=== PATIENT | female | born 1955 ===

== ENCOUNTER 2022-05-11 12:27 | Observation (INO) ==
[~2022-05-11 12:27] MED LIST: Artificial Tear OPHTH.OINT 3.5 GM ONE; Buffered Lidocaine 1% SYRIN 1 ml INTRADERM ONE; Dexamethasone IV 4 MG/ML VIAL 1 ml VIAL ONE; Lactated Ringers 1000 ml BAG 1,000 ML IV SCH; Lidocaine 2% PF 5 ML VIAL ONE; Midazolam 2 mg/2 ml VIAL 1 mg/ml 2 ml VIAL (2 mg) ONE; Ondansetron 4 mg VIAL 2 MG/ML 2 ml VIAL ONE; Propofol 10 MG/ML 20 ML BTL ONE; Rocuronium 50 mg VIAL 10 mg/ml 5 ml VIAL (50 mg) ONE; fentaNYL 250 mcg/5 ml 50 MCG/ML 5 ml VIAL (250 MCG) ONE
[2022-05-11] MEDS ORDERED: ceFAZolin 2 GM PREMIX 2 GM/50 ML BAG ONE (12:54)
[2022-05-11 13:21] LABS: Rapid COVID-19 Molecular Undetected (Undetected)
[2022-05-11] MEDS ORDERED: Lidocaine 1% w EPI 1:200,000 SDV 30 ML VIAL ONE (13:25)
[2022-05-11] MEDS ORDERED: Bupivacaine 0.25% SDV 30 ML ONE ×2 (13:25→13:59)
[2022-05-11 13:54] LABS: Calcium 9.4 mg/dL (8.6-10.3); Potassium 4.5 mmol/L (3.5-5.0); eGFR CKD-EPI 76.6 (>60)
[2022-05-11] MEDS ORDERED: Ondansetron 4 mg VIAL 2 MG/ML 2 ml VIAL IV PRN ×2 (14:45→16:42)
[2022-05-11] MEDS ORDERED: Naloxone 0.4 mg VIAL 0.4 mg/ml 1 ml VIAL IV PRN (14:45)
[2022-05-11] MEDS ORDERED: HYDROmorphone 1 MG/1 ML SYRINGE IV PRN (14:45)
[2022-05-11] MEDS ORDERED: Morphine 2 MG/ML SYRINGE IV PRN (16:51)
[2022-05-11] MEDS ORDERED: fentaNYL 100 mcg/2 ml 50 MCG/ML VIAL ONE (17:04)
[2022-05-11] MEDS: fentaNYL 100 mcg/2 ml 50 MCG/ML VIAL IV PRN ×4 (17:05→17:35)
[2022-05-11] MEDS: Lactated Ringers 1000 ml BAG 1,000 ML IV SCH (18:49)
[2022-05-11] MEDS: Famotidine IV 10 MG/ML 2 ml VIAL (20 mg) IV SLOW PU SCH (21:12)
[2022-05-12] MEDS: HYDROcodone/ACET. 7.5/325 LIQ 15 ML UDC PO PRN ×2 (01:37→17:25)
[2022-05-12] MEDS: Heparin 5000 UNITS/ML 1 mL VIAL SUBCUT SCH ×2 (05:37→14:27)
[2022-05-12] MEDS ORDERED: Levothyroxine 100 MCG/5 ML VIAL IV SCH (06:00)
[2022-05-12] MEDS: Famotidine IV 10 MG/ML 2 ml VIAL (20 mg) IV SLOW PU SCH (08:12)
[2022-05-12] MEDS: Lactated Ringers 1000 ml BAG 1,000 ML IV SCH (08:14)
[2022-05-12 16:45] VITALS: BP 146/75
== END 2022-05-12 17:33 | disposition home or self-care (01) ==
LOC: SDS 12:27 → SSU 12:27 → EDSTATUS 13:45
PROVIDERS: ADMIT Surgery; ATTEND Surgery